=== PATIENT | female | born 1950 | race Caucasian/White ===

== ENCOUNTER 2023-02-14 13:03 | Day surgery (SDC) | payer MEDICARE, OTHER ==
[2023-02-14] MEDS ORDERED: BUPIVACAINE 0.5% VIAL IJ ONE (13:04)
[2023-02-14] MEDS ORDERED: DIPRIVAN 200 MG/20 ML IV ONE (16:09)
--- NOTE | 2023-02-14 16:59 | XRAY ---
Indication: Left knee genicular nerve block. Intraoperative fluoroscopy provided for 12 seconds. 2 digital spot images submitted for interpretation demonstrates anterior needle tips projecting medial/lateral supracondylar and medial tibial plateau. Correlate with intraoperative findings/report.
--- NOTE | 2023-02-14 16:59 | XRAY ---
Indication: Right knee genicular nerve block. Intraoperative fluoroscopy provided for 15 seconds. 4 digital spot images submitted for interpretation demonstrates anterior needle tips projecting medial/lateral supracondylar and medial tibial plateau. Correlate with intraoperative findings/report.
--- NOTE | 2023-02-14 17:05 | XRAY ---
12 seconds of fluoroscopy was used in surgery for a left genicular nerve block.
--- NOTE | 2023-02-14 17:06 | XRAY ---
15 seconds of fluoroscopy was used in surgery for a right genicular nerve block.
[2023-02-14] MEDS ORDERED: Lactated Ringers 1,000 ML IV ONE (19:05)
== END 2023-02-14 16:42 | disposition home or self-care (01) ==
LOC: SDC-PAIN 13:03
PROVIDERS: ATTEND Psychiatry & Neurology Pain Medicine
DX: M17.0 Bilateral primary osteoarthritis of knee (principal); Z79.899 Other long term (current) drug therapy
CPT/HCPCS: 64454; 73560; 77002; J2704

== ENCOUNTER 2023-03-22 12:46 | Day surgery (SDC) | payer MEDICARE, OTHER ==
[2023-03-22] MEDS ORDERED: BUPIVACAINE 0.5% VIAL IJ ONE (12:47)
[2023-03-22] MEDS ORDERED: Depo-Medrol 40 MG/ML IM ONE (12:47)
[2023-03-22] MEDS ORDERED: XYLOCAINE-MPF 1% 5ML SDV IJ ONE (12:47)
[2023-03-22] MEDS ORDERED: DIPRIVAN 200 MG/20 ML IV ONE (14:44)
[2023-03-22] MEDS ORDERED: Lactated Ringers 1,000 ML IV ONE (16:30)
--- NOTE | 2023-03-22 16:36 | XRAY ---
Indication: Left knee genicular nerve block. Intraoperative fluoroscopy provided for 20 seconds. 3 digital spot images submitted for interpretation demonstrates anterior needle tips projecting medial/lateral supracondylar and medial tibial plateau. Correlate with intraoperative findings/report.
--- NOTE | 2023-03-22 16:53 | XRAY ---
20 seconds of fluoroscopy was used in surgery for a left genicular nerve block.
== END 2023-03-22 15:15 | disposition home or self-care (01) ==
LOC: SDC-PAIN 12:46
PROVIDERS: ATTEND Psychiatry & Neurology Pain Medicine
DX: M17.12 Unilateral primary osteoarthritis, left knee (principal); Z79.899 Other long term (current) drug therapy
CPT/HCPCS: 64624; 73560; 77002; 99100; J1030; J2704

== ENCOUNTER → 2023-03-28 | Day surgery (SDC) | payer MEDICARE, OTHER ==
[~2023-03-28] MED LIST: BUPIVACAINE 0.5% VIAL IJ ONE; DIPRIVAN 200 MG/20 ML IV ONE; Depo-Medrol 40 MG/ML IM ONE; Lactated Ringers 1,000 ML IV ONE; XYLOCAINE-MPF 1% 5ML SDV IJ ONE
--- NOTE | 2023-03-28 15:20 | XRAY ---
Indication: Right knee genicular ablation. Intraoperative fluoroscopy provided for 25 seconds. 4 digital spot images right knee submitted for interpretation demonstrates anterior needle tips projecting medial/lateral supracondylar and medial tibial plateau. Correlate with intraoperative findings/report.
--- NOTE | 2023-03-28 16:56 | XRAY ---
25 seconds of fluoroscopy was used in surgery for a right genicular knee ablation.
== END ==
LOC: SDC-PAIN 12:46
PROVIDERS: ATTEND Psychiatry & Neurology Pain Medicine
DX: M17.11 Unilateral primary osteoarthritis, right knee (principal)
CPT/HCPCS: 64624; 73560; 77002; 99100; J1030; J2704

== ENCOUNTER 2024-03-31 20:23 | Emergency (ER) | payer MEDICARE, OTHER ==
--- NOTE | 2024-03-31 20:29 | ERPHSYRPT ---
- History of Present Illness Time Seen by Provider: 03/31/24 20:29 Historian: patient, family Exam Limitations: no limitations Physician History: This is a 73-year-old white female patient who is overweight arrives by private vehicle and accompanied by her niece with a complaint of chest pain. However, in having the patient discuss the pain pattern, the patient states the pain starts between her scapulae posteriorly then radiates anteriorly into her left chest. It has been happening intermittent the last 1 to 2 days. She thought it had let up this morning but then recurred. Patient has known history of hypertension but refuses to take blood pressure medications. Patient also has a history of hyperlipidemia but refuses to take the statin medications. Patient is allergic to naproxen. Patient denies shortness of breath. She has no headache and no visual changes. Timing/Duration: day(s) (1 to 2 days ago) Activities at Onset: none Quality: sharpness, stabbing Location: shoulder (Between her shoulders posteriorly) Severity of Pain-Max: mild (To moderate) Severity of Pain-Current: mild (To moderate) Modifying Factors: Improves With: nothing Associated Symptoms: denies symptoms Prior Chest Pain/Cardiac Workup: no prior chest pain, no prior cardiac workup Nitro Today/Relief: no nitro taken today Aspirin Treatment Today: 81 mg x 4, provided by ED Allergies/Adverse Reactions: naproxen [From Aleve] Allergy (Verified 03/31/24 20:26) Itching Home Medications: Levothyroxine Sodium 100 mcg PO DAILY 03/31/24 [History] Travel Risk - International Travel Have you traveled outside of the country in past 3 weeks: No - Emerging Infectious Disease Are you exhibiting symptoms associated with any current EIDs: No - Review of Systems Constitutional: No Symptoms Eyes: No Symptoms Ears, Nose, & Throat: No Symptoms Respiratory: No Symptoms Cardiac: Chest Pain Abdominal/Gastrointestinal: No Symptoms Genitourinary Symptoms: No Symptoms Musculoskeletal: No Symptoms Skin: No Symptoms Neurological: No Symptoms Psychological: No Symptoms Endocrine: No Symptoms Hematologic/Lymphatic: No Symptoms Immunological/Allergic: No Symptoms All Other Systems: Reviewed and Negative - Past Medical History Pertinent Past Medical History: Yes - Nursing Vital Signs Nursing Vital Signs: Initial Vital Signs Pulse Rate 82 03/31/24 20:38 Pain Scale Pain Intensity 5 - Physical Exam General Appearance: no apparent distress, alert, anxiety, obese Eye Exam: PERRL/EOMI, eyes nml inspection Ears, Nose, Throat Exam: normal ENT inspection, moist mucous membranes Neck Exam: normal inspection, non-tender, supple, full range of motion Respiratory Exam: normal breath sounds, chest tenderness, lungs clear, airway intact, No respiratory distress Cardiovascular Exam: regular rate/rhythm, normal heart sounds, normal peripheral pulses Gastrointestinal/Abdomen Exam: soft, normal bowel sounds, No tenderness Pelvic Exam: not done Rectal Exam: not done Back Exam: normal inspection, normal range of motion, No CVA tenderness, No vertebral tenderness Extremity Exam: normal inspection, normal range of motion, pelvis stable Neurologic Exam: alert, oriented x 3, cooperative, compliance manager II-XII nml as tested, nml cerebellar function, nml station & gait, sensation nml Skin Exam: normal color, warm, dry Lymphatic Exam: No adenopathy SpO2 Interpretation: normal O2 Delivery: Room Air - Course Nursing assessment & vital signs reviewed: Yes EKG Interpreted by Me: RATE (82), Sinus Rhythm, NORMAL AXIS, NORMAL INTERVALS, NORMAL QRS, Other (No acute ischemic changes on today's twelve-lead EKG. QTc is 429) Ordered Tests: Active Orders 24 hr Category Date Time Status Machine Setup Operator STAT Care 03/31/24 20:49 Active EKG-ER Only STAT Care 03/31/24 20:47 Active IV Insertion STAT Care 03/31/24 20:47 Active Pulse Oximetry (ED) STAT Care 03/31/24 20:47 Active CHEST WITH CONTRAST [CT] Stat Exams 03/31/24 21:55 Completed CBC W DIFF Stat Lab 03/31/24 20:45 Completed CMP Stat Lab 03/31/24 20:45 Completed D-DIMER QUANTITATIVE Stat Lab 03/31/24 20:45 Completed MAGNESIUM Stat Lab 03/31/24 20:45 Completed NT PRO BNPII Stat Lab 03/31/24 20:45 Completed PROTIME WITH INR Stat Lab 03/31/24 20:45 Completed TROPONIN Q4H Lab 03/31/24 20:45 Completed TROPONIN Q4H Lab 04/01/24 01:00 Ordered TROPONIN Q4H Lab 04/01/24 05:00 Ordered Medication Summary Generic Name Dose Route Start Last Admin Trade Name Freq PRN Reason Stop Dose Admin Sodium Chloride 250 mls @ 250 mls/hr 03/31/24 22:00 03/31/24 23:07 Sodium Chloride 0.9% 250 Ml IV 03/31/24 22:59 Infused .Q1H CAREY Infusion Discontinued Medications Generic Name Dose Route Start Last Admin Trade Name Lizzeth PRN Reason Stop Dose Admin Aspirin 324 mg 03/31/24 21:21 03/31/24 21:52 Aspirin 81 Mg Tab.Chew PO 03/31/24 21:22 324 mg STAT ONE Administration Aspirin Confirm 03/31/24 21:50 Aspirin 81 Mg Tab.Chew Administered 03/31/24 21:51 Dose 324 mg .ROUTE .STK-MED ONE Heparin Sodium (Beef Lung) 5,000 unit 03/31/24 23:55 04/01/24 00:01 Heparin 5000 Units/0.5 Ml 5,000 Unit/0.5 Ml Syr IV 03/31/24 23:56 5,000 unit STAT ONE Administration Heparin Sodium (Beef Lung) Confirm 04/01/24 00:01 Heparin 5000 Units/0.5 Ml 5,000 Unit/0.5 Ml Syr Administered 04/01/24 00:02 Dose 5,000 unit .ROUTE .STK-MED ONE Morphine Sulfate 4 mg 03/31/24 21:21 03/31/24 21:53 Morphine Sulfate 4 Mg/Ml Injection IV 03/31/24 21:22 4 mg STAT ONE Administration Morphine Sulfate Confirm 03/31/24 21:50 Morphine Sulfate 4 Mg/Ml Injection Administered 03/31/24 21:51 Dose 4 mg .ROUTE .STK-MED ONE Nitroglycerin 1 gm 03/31/24 22:08 03/31/24 22:30 Nitroglycerin 1 Gm Packet TOP 03/31/24 22:09 1 gm STAT ONE Administration Nitroglycerin Confirm 03/31/24 22:24 Nitroglycerin 1 Gm Packet Administered 03/31/24 22:25 Dose 1 gm .ROUTE .STK-MED ONE Ondansetron HCl 4 mg 03/31/24 21:21 03/31/24 21:53 Ondansetron Hcl 4 Mg/2 Ml Vial IV 03/31/24 21:22 4 mg STAT ONE Administration Ondansetron HCl Confirm 03/31/24 21:50 Ondansetron Hcl 4 Mg/2 Ml Vial Administered 03/31/24 21:51 Dose 4 mg .ROUTE .STK-MED ONE Lab/Rad Data: Laboratory Result Diagrams 03/31/24 20:45 03/31/24 20:45 Laboratory Results 03/31/24 03/31/24 03/31/24 Range/Units 20:45 20:45 20:45 WBC (3.98-10.04) x10^3/uL RBC (3.93-5.22) x10^6/uL Hgb (11.2-15.7) g/dL Hct (34.1-44.9) % MCV (79.4-94.8) fL MCH (25.6-32.2) pg MCHC (32.2-35.5) g/dL RDW (11.7-14.4) % Plt Count (182-369) x10^3/uL MPV (9.4-12.3) fL Gran % (34.0-71.1) % Immature Gran % (Auto) (0.001-0.429) % Nucleat RBC Rel Count (0.00-0.2) % Eos # (Auto) (0.04-0.36) x10^3/uL Immature Gran # (Auto) (0.001-0.031) x10^3u/L Absolute Lymphs (auto) (1.18-3.74) x10^3/uL Absolute Monos (auto) (0.24-0.86) x10^3/uL Absolute Nucleated RBC (0.00-0.012) x10^3u/L Lymphocytes % (19.3-51.7) % Monocytes % (4.7-12.5) % Eosinophils % (0.7-5.8) % Basophils % (0.1-1.2) % Absolute Granulocytes (1.56-6.13) x10^3/uL Basophils # (0.01-0.08) x10^3/uL PT 10.8 (9.4-12.5) SECONDS INR 0.99 (0.8-3.0) D-Dimer 0.77 H* (0.0-0.50) mg/L Sodium 135 (135-145) mmol/L Potassium 4.0 (3.5-5.1) mmol/L Chloride 101 (98-107) mmol/L Carbon Dioxide 26 (22-30) mmol/L Anion Gap 11.5 (5-15) MEQ/L BUN 11 (7-17) mg/dL Creatinine 0.59 (0.52-1.04) mg/dL Estimated GFR 93.9 ML/MIN Glucose 104 (74-106) mg/dL Calcium 9.6 (8.4-10.2) mg/dL Magnesium 1.9 (1.6-2.3) mg/dL Total Bilirubin 0.70 (0.2-1.3) mg/dL AST 40 H (14-36) U/L ALT 30 (0-35) U/L Alkaline Phosphatase 151 H (38-126) U/L Troponin I 1.300 H* (0.000-0.033) ng/mL NT-Pro-B Natriuret Pep 524 (<300) pg/mL Serum Total Protein 6.9 (6.3-8.2) g/dL Albumin 4.3 (3.5-5.0) g/dL 03/31/ Range/Units 20:45 WBC 9.0 (3.98-10.04) x10^3/uL RBC 4.13 (3.93-5.22) x10^6/uL Hgb 13.1 (11.2-15.7) g/dL Hct 39.2 (34.1-44.9) % MCV 94.9 H (79.4-94.8) fL MCH 31.7 (25.6-32.2) pg MCHC 33.4 (32.2-35.5) g/dL RDW 12.7 (11.7-14.4) % Plt Count 257 (182-369) x10^3/uL MPV 10.2 (9.4-12.3) fL Gran % 67.7 (34.0-71.1) % Immature Gran % (Auto) 0.3 (0.001-0.429) % Nucleat RBC Rel Count 0.0 (0.00-0.2) % Eos # (Auto) 0.12 (0.04-0.36) x10^3/uL Immature Gran # (Auto) 0.03 (0.001-0.031) x10^3u/L Absolute Lymphs (auto) 1.89 (1.18-3.74) x10^3/uL Absolute Monos (auto) 0.85 (0.24-0.86) x10^3/uL Absolute Nucleated RBC 0.00 (0.00-0.012) x10^3u/L Lymphocytes % 20.9 (19.3-51.7) % Monocytes % 9.4 (4.7-12.5) % Eosinophils % 1.3 (0.7-5.8) % Basophils % 0.4 (0.1-1.2) % Absolute Granulocytes 6.10 (1.56-6.13) x10^3/uL Basophils # 0.04 (0.01-0.08) x10^3/uL PT (9.4-12.5) SECONDS INR (0.8-3.0) D-Dimer (0.0-0.50) mg/L Sodium (135-145) mmol/L Potassium (3.5-5.1) mmol/L Chloride (98-107) mmol/L Carbon Dioxide (22-30) mmol/L Anion Gap (5-15) MEQ/L BUN (7-17) mg/dL Creatinine (0.52-1.04) mg/dL Estimated GFR ML/MIN Glucose (74-106) mg/dL Calcium (8.4-10.2) mg/dL Magnesium (1.6-2.3) mg/dL Total Bilirubin (0.2-1.3) mg/dL AST (14-36) U/L ALT (0-35) U/L Alkaline Phosphatase (38-126) U/L Troponin I (0.000-0.033) ng/mL NT-Pro-B Natriuret Pep (<300) pg/mL Serum Total Protein (6.3-8.2) g/dL Albumin (3.5-5.0) g/dL - Progress Progress: improved, re-examined Air Movement: good Progress Note: 03/31/24 20:56 My medical decision making and the assignment of moderate complexity to this patient's medical issue today is based on review of the patient's past medical history, review of the patient's medication list, history present illness and physical findings on examination. The workup in this patient includes placement of intravenous line, providing the patient with 4 baby aspirin, CBC, CMP, D- dimer, BNP, troponin level, twelve-lead EKG, magnesium level. If the patient has an elevated D-dimer we will perform a CT scan of the chest with contrast. If the D-dimer is normal, we will perform a plain CT scan of the chest without contrast. Differential diagnosis includes but is not limited to myocardial infarction, muscle skeletal pain, arrhythmia, electrolyte abnormalities, hypertension, anxiety 03/31/24 23:52 I interpreted the patient's laboratory data results. The laboratory data results show a troponin of 1.30 and a D-dimer of 0.77. Both of these levels are elevated. I ordered a CT scan of the chest with contrast. CT scan of the chest with contrast was interpreted by the radiologist and I reviewed the impression. The impression states negative pulmonary embolus. Old granulomatous disease. No pleural effusions present. No evidence of infiltrate or pneumonia. Patient complained of chest pain returning. Repeat twelve-lead EKG was interpreted by me it was performed at 2347 on 03/31/2024. Heart rate is 80 rhythm is normal sinus rhythm. No other significant changes. Normal axis deviation, normal QRS and normal intervals. No acute ischemic changes present. QTc is 452 04/01/24 01:[address] Sanchez, loss prevention operations manager on-call at [facility]. I reviewed the patient history, chief complaint, physical findings and workup results. I also forwarded him the 2 twelve-lead EKGs for him to review. He accepts the patient in transfer for non-STEMI. Blood Culture(s) Obtained: No Antibiotics given: No Counseled pt/family regarding: lab results, diagnosis, need for follow-up, rad results Medical Desision Making - Independent Historian Additional History obtained from: Family - Diagnostic Testing Diagnostic test were ordered, analyzed, and reviewed by me: Yes Radiological Interpretation: Reviewed by me, Teleradiologist Report - Risk of complications The pt has a high risk of morbidity or mortality based on: Decision regarding hospitilization or escalation of hosp level of care - Departure Departure Disposition: Transfer Clinical Impression: Chest pain, Non-STEMI (non-ST elevated myocardial infarction) Condition: Stable Critical Care Time: Yes Critical Care Time(excluding separately billable procedures): Critical 30-74 mins (45) Referrals: AMALIA GARZA [NON-STAFF PHY W/O PRIVILEGES] - Follow up/PCP as directed
[2024-03-31 20:53] VITALS: TEMP 98.7
[2024-03-31 20:58] LABS: BASOPHIL % 0.4 % (0.1-1.2); Basophil (Absolute #) 0.04 x10^3/uL (0.01-0.08); Eosinophil % 1.3 % (0.7-5.8); Eosinophil (Absolute #) 0.12 x10^3/uL (0.04-0.36); Hematocrit 39.2 % (34.1-44.9); Hemoglobin 13.1 g/dL (11.2-15.7); IMMATURE GRAN # 0.03 x10^3u/L (0.001-0.031); IMMATURE GRAN % 0.3 % (0.001-0.429); Lymphocyte (Absolute #) 1.89 x10^3/uL (1.18-3.74); Lymphocytes % 20.9 % (19.3-51.7); Mean Cell Volume 94.9 fL (79.4-94.8); Mean Corpuscular Hemoglobin 31.7 pg (25.6-32.2); Mean Corpuscular Hgb Concent. 33.4 g/dL (32.2-35.5); Mean Platelet Volume 10.2 fL (9.4-12.3); Monocyte (Absolute #) 0.85 x10^3/uL (0.24-0.86); Monocytes % 9.4 % (4.7-12.5); Neutrophil % 67.7 % (34.0-71.1); Platelet Count 257 x10^3/uL (182-369); Red Blood Count 4.13 x10^6/uL (3.93-5.22); Red Cell Distribution Width 12.7 % (11.7-14.4)
[2024-03-31 21:39] LABS: INR 0.99 (0.8-3.0); PROTIME 10.8 SECONDS (9.4-12.5)
[2024-03-31 21:42] LABS: D-DIMER QUANTITATIVE 0.77 mg/L (0.0-0.50)
[2024-03-31 21:46] LABS: ALBUMIN 4.3 g/dL (3.5-5.0); ANION GAP 11.5 MEQ/L (5-15); BILIRUBIN,TOTAL 0.7 mg/dL (0.2-1.3); Calcium 9.6 mg/dL (8.4-10.2); Creatinine 1 0.59 mg/dL (0.52-1.04); EST GLOMERULAR FILTRATION RATE 93.9 ML/MIN; MAGNESIUM 1.9 mg/dL (1.6-2.3); Total Protein 6.9 g/dL (6.3-8.2)
[2024-03-31] MEDS ORDERED: BABY ASPIRIN 81 MG CHEW ONE (21:50)
[2024-03-31] MEDS ORDERED: Zofran 4 MG/2 ML VIAL ONE (21:50)
[2024-03-31] MEDS ORDERED: MORPHINE SULFATE 4 MG INJ ONE (21:50)
[2024-03-31] MEDS: BABY ASPIRIN 81 MG CHEW PO ONE (21:52)
[2024-03-31] MEDS: Zofran 4 MG/2 ML VIAL IV ONE (21:53)
[2024-03-31] MEDS: MORPHINE SULFATE 4 MG INJ IV ONE (21:53)
[2024-03-31] MEDS ORDERED: Sodium Chloride 0.9% 250 ML 250 ML IV ONE (21:57)
[2024-03-31] MEDS: Sodium Chloride 0.9% 250 ML 250 ML IV SCH (21:58)
[2024-03-31] MEDS ORDERED: NITRO-BID 2% UD PACKETS ONE (22:24)
[2024-03-31] MEDS: NITRO-BID 2% UD PACKETS TOP ONE (22:30)
--- NOTE | 2024-03-31 23:47 | XRAY ---
CLINICAL HISTORY: Chest pain; elevated D-dimer COMPARISON: None. TECHNIQUE: Contiguous axial images were obtained from the neck base through the upper abdomen following intravenous administration of iodinated contrast material. Angiographic images were processed, 3D MIP images were acquired for interpretation. If IV contrast material had not been administered, the likelihood of detecting abnormalities relevant to the patient's condition would have been substantially decreased. Coronal and sagittal 3-D MIPs were likewise performed and indicated to increase the sensitivity of detecting diffuse clinically relevant pathology. CT scan was performed according to ALARA (as low as reasonable achievable). FINDINGS: Adequate contrast bolus without evidence of pulmonary embolism. The central airways are patent. The lungs are clear. No pleural effusion. The heart, aorta, and pulmonary arteries are of normal size and configuration. Few calcified mediastinal lymph nodes noted, likely representing old granulomatous disease. There are no appreciable coronary artery and aortic atherosclerotic calcifications. No pericardial effusion is identified. The thyroid is unremarkable. No hilar or axillary lymphadenopathy is noted. Degenerative changes are noted in the visualized spine. No suspicious lytic or sclerotic osseous lesions are identified. IMPRESSION: 1. No evidence of pulmonary embolism. 2. Few calcified mediastinal lymph nodes, likely representing old granulomatous disease. Electronically Signed by: Mohamud Swan MD. (03/31/2024 23:43:45 EST)
[2024-04-01] MEDS ORDERED: HEPARIN 5000 UNITS/0.5 ML (HIGH RISK MED) ONE (00:01)
[2024-04-01] MEDS: HEPARIN 5000 UNITS/0.5 ML (HIGH RISK MED) IV ONE (00:01)
[2024-04-01 03:15] VITALS: BP 113/54; PULSE 74; RESP 15; O2SAT 98
== END 2024-04-01 03:30 | disposition short-term general hospital (02) ==
LOC: ED 20:23
DX: I21.4 Non-ST elevation (NSTEMI) myocardial infarction (principal); R07.9 Chest pain, unspecified; I10 Essential (primary) hypertension; E78.5 Hyperlipidemia, unspecified
CPT/HCPCS: 36415; 71260; 80053; 83735; 83880; 84484; 85025; 85379; 85610; 93005; 93041; 94760; 96374; 96375; 99285; 99291; J1644; J2270; J2405; A9270-GY